=== PATIENT | female | born 1990 | race American Indian/Alaskan Native ===

== ENCOUNTER 2021-12-27 09:31 | Emergency (ER) | payer OTHER ==
--- NOTE | 2021-12-27 16:29 | XRay Report ---
. RIGHT FOOT 2 VIEWS INDICATION: trauma. COMPARISON: None. IMPRESSION: No acute osseous or soft tissue abnormality. No significant DJD. Signer Name: Felipe Lambert Jr, MD Signed: 12/27/2021 4:24 PM Workstation Name: [id number]
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
[2021-12-27 18:26] VITALS: BP 119/72
== END 2021-12-27 18:26 | disposition home or self-care (01) ==
LOC: ED 09:31
DX: S97.81XA Crushing injury of right foot, initial encounter (principal); X58.XXXA Exposure to other specified factors, initial encounter; Y93.89 Activity, other specified; Y92.89 Other specified places as the place of occurrence of the external cause; Y99.8 Other external cause status
CPT/HCPCS: 99283